=== PATIENT | female | born 1960 | race Caucasian/White ===

== ENCOUNTER 2016-10-28 23:43 | Emergency (ER) | payer OTHER ==
[~2016-10-28] VITALS: Ht 167.6 cm; Wt 81.8 kg
[~2016-10-28 23:43] MED LIST: DILT180C75 PO; LOSA1TAB3 PO
[2016-10-28 23:46] VITALS: Ht 167.6 cm; Wt 81.8 kg
[2016-10-29] MEDS ORDERED: NITROGLYCERIN 2% 1 GM OINT PKT TD STA (00:06)
[2016-10-29] MEDS ORDERED: ASPIRIN 325 MG TAB PO STA (00:06)
--- NOTE | 2016-10-29 00:45 | RADRPT ---
PROCEDURE: Portable chest x-ray. CLINICAL INDICATION: 56 years of age, female. Chest pain TECHNIQUE: Portable AP view of the chest. COMPARISON: None available. FINDINGS: Cardiomediastinal contours are normal. Lungs are clear. Negative for pleural effusion or pneumothorax. No acute bony abnormality. IMPRESSION: Negative for evidence of acute chest process. RPTAT: HCTS Physician Silas Date Time Electronically viewed and signed by Jonelle Arthur Physician on 10/29/2016 00:44 /
[2016-10-29 00:54] LABS: BASOPHILS % 0.4 % (0.0-2.0); EOSINOPHILS # 0.1 10^3/ul (0.0-0.5); EOSINOPHILS % 1.4 % (0.0-7.0); HEMATOCRIT 40.2 % (37.0-47.0); LYMPHOCYTES # 2.8 10^3/ul (0.8-2.9); LYMPHOCYTES % 32.8 % (15.0-51.0); MEAN CORPUSCULAR HEMOGLOBIN 29.9 pg (29.0-33.0); MEAN CORPUSCULAR HGB CONC 34.8 g/dl (32.0-37.0); MEAN CORPUSCULAR VOLUME 85.9 fl (82.0-101.0); MEAN PLATELET VOLUME 9.8 fl (7.4-10.4); MONOCYTE # 0.7 10^3/ul (0.3-0.9); MONOCYTES % 8.5 % (0.0-11.0); NEUTROPHILS % 56.5 % (39.0-77.0); PLATELET COUNT 275 10^3/UL (140-415); RED BLOOD COUNT 4.68 10^6/ul (4.20-5.40); RED CELL DISTRIBUTION WIDTH 11.9 % (11.5-14.5); WHITE BLOOD COUNT 8.5 10^3/ul (4.8-10.8)
[2016-10-29 01:10] LABS: INR 0.94; PROTIME 12.6 Sec (12.2-14.2)
[2016-10-29 01:11] LABS: PARTIAL THROMBOPLASTIN TIME 27.3 Sec (25.0-35.0)
[2016-10-29 01:17] LABS: ALANINE AMINOTRANSFERASE 36 IU/L (13-69); ALBUMIN 4.3 g/dl (3.3-4.9); ALBUMIN/GLOBULIN RATIO 1.59; ALKALINE PHOSPHATASE 94 IU/L (42-121); ANION GAP 21 (8-16); ASPARTATE AMINO TRANSFERASE 28 IU/L (15-46); BILIRUBIN,INDIRECT 0.2 mg/dl (0-1.1); BILIRUBIN,TOTAL 0.2 mg/dl (0.2-1.3); BLOOD UREA NITROGEN 19 mg/dl (7-20); CALCIUM 10.1 mg/dl (8.4-10.2); CARBON DIOXIDE 25 mmol/L (21-31); CHLORIDE 99 mmol/L (97-110); CREATININE 0.62 mg/dl (0.44-1.00); GLUCOSE 89 mg/dl (70-220); POTASSIUM 3.1 mmol/L (3.5-5.1); SODIUM 142 mmol/L (135-144)
[2016-10-29 01:25] LABS: B-TYPE NATRIURETIC PEPTIDE 26 PG/ML (0-125)
[2016-10-29 01:27] LABS: TROPONIN-I < 0.012 ng/ml (0.00-0.12)
[2016-10-29] MEDS ORDERED: PANT40TA4 PO (01:42)
--- NOTE | 2016-10-29 02:45 | ERA ---
ER Documentation Chief Complaint Date/Time DATE: 10/29/16 TIME: 02:44 Chief Complaint MID EPIGASTRIC CHEST PAIN X3 DAYS. WORSE TONIGHT HPI 56-year-old female comes in once of chest pain for 3 days is worse tonight. No nausea no vomiting no chills. No other current complaints. She is on her blood pressure severely elevated. She denies any current issues. Pain is mild to moderate intensity no exacerbating or relieving factors ROS All systems reviewed and are negative except as per history of present illness. Medications Home Meds Reported Medications Pantoprazole* (Pantoprazole*) 40 Mg Tablet.dr, 40 MG PO DAILY, TAB 10/29/16 Diltiazem Hcl* (Cardizem CD*) 180 Mg Cap.sr.24h, 180 MG PO DAILY 05/08/12 Losartan-Hydrochlorothiazide (Hyzaar) 1 Tab Tablet, 1 TAB PO DAILY 05/08/12 Allergies Allergies: Coded Allergies: No Known Allergy (Unverified , 10/29/16) PMhx/Soc History of Surgery: Yes (D&C) Anesthesia Reaction: No Hx Neurological Disorder: No Hx Respiratory Disorders: No Hx Cardiac Disorders: Yes (HTN) Hx Psychiatric Problems: No Hx Miscellaneous Medical Probl: No Hx Alcohol Use: No Hx Substance Use: No Hx Tobacco Use: No Smoking Status: Unknown if ever smoked Physical Exam Vitals Vital Signs Date Time Temp Pulse Resp B/P Pulse Ox O2 Delivery O2 Flow Rate FiO2 10/29/16 00:32 Nasal Cannula 2 10/28/16 23:46 97.0 96 24 214/102 100 Physical Exam Const: [] Head: Atraumatic Eyes: Normal Conjunctiva ENT: Normal External Ears, Nose and Mouth. Neck: Full range of motion..~ No meningismus. Resp: Clear to auscultation bilaterally Cardio: Regular rate and rhythm, no murmurs Abd: Soft, non tender, non distended. Normal bowel sounds Skin: No petechiae or rashes Back: No midline or flank tenderness Ext: No cyanosis, or edema Neur: Awake and alert Psych: Normal Mood and Affect Result Diagram: 10/29/16 0022 10/29/16 0022 Results 24 hrs Laboratory Tests Test 10/29/16 00:22 White Blood Count 8.510^3/ul Red Blood Count 4.6810^6/ul Hemoglobin 14.0g/dl Hematocrit 40.2% Mean Corpuscular Volume 85.9fl Mean Corpuscular Hemoglobin 29.9pg Mean Corpuscular Hemoglobin Concent 34.8g/dl Red Cell Distribution Width 11.9% Platelet Count 94781^3/UL Mean Platelet Volume 9.8fl Neutrophils % 56.5% Lymphocytes % 32.8% Monocytes % 8.5% Eosinophils % 1.4% Basophils % 0.4% Nucleated Red Blood Cells % 0.0/100WBC Neutrophils # (Manual) 510^3/ul Lymphocytes # 2.810^3/ul Monocytes # 0.710^3/ul Eosinophils # 0.110^3/ul Basophils # 0.010^3/ul Nucleated Red Blood Cells # 0.010^3/ul Prothrombin Time 12.6Sec Prothrombin Time Ratio 1.0 INR International Normalized Ratio 0.94 Activated Partial Thromboplast Time 27.3Sec Sodium Level 142mmol/L Potassium Level 3.1mmol/L Chloride Level 99mmol/L Carbon Dioxide Level 25mmol/L Anion Gap 21 Blood Urea Nitrogen 19mg/dl Creatinine 0.62mg/dl Glucose Level 89mg/dl Calcium Level 10.1mg/dl Total Bilirubin 0.2mg/dl Direct Bilirubin 0.00mg/dl Indirect Bilirubin 0.2mg/dl Aspartate Amino Transf (AST/SGOT) 28IU/L Alanine Aminotransferase (ALT/SGPT) 36IU/L Alkaline Phosphatase 94IU/L Troponin I < 0.012ng/ml B-Type Natriuretic Peptide 26PG/ML Total Protein 7.0g/dl Albumin 4.3g/dl Globulin 2.70g/dl Albumin/Globulin Ratio 1.59 Current Medications Medications (Trade) Dose Ordered Sig/Jorge L Route PRN Reason Start Time Stop Time Status Last Admin Dose Admin Aspirin (Aspirin) 325 mg ONCE STAT PO 10/29/16 00:06 10/29/16 00:08 DC 10/29/16 00:30 Nitroglycerin (Nitroglycerin 2% Oint) 1 inch ONCE STAT TD 10/29/16 00:06 10/29/16 00:08 DC 10/29/16 00:31 Procedures/MDM EKG: Rate/Rhythm: Normal Sinus Rhythm QRS, ST, T-waves: No changes consistent w/ acute ischemia Impression: No evidence of ischemia or arrhythmia Chest X-ray 1V Interpreted by me: Soft Tissue: No acute abnormalities Bones: No acute abnormalities Mediastinum/Cardiac Silhouette/Lungs: No acute abnormalities Patient's symptoms are concerning for cardiac cause will require inpatient workup and continuous monitoring. Further w/u for ischemia, arrhythmia, PE or dissection will be deferred to the inpatient team. Accepting Care Team: Current data and ongoing care discussed. Time: To 45 Primary Provider: [employer] Consulting: [[email or web address]] Outstanding Data: none Departure Diagnosis: Primary Impression: Chest pain Qualified Code: R07.9 - Chest pain, unspecified type Condition: Serious TIGRE CARRANZA Oct 29, 2016 02:45
[2016-10-29] MEDS ORDERED: ONDANSETRON 4 MG INJ IV PRN (05:30)
[2016-10-29] MEDS ORDERED: morphine 4 MG/ML VIAL IV PRN (05:30)
[2016-10-29] MEDS ORDERED: AL HYDROX/MG HYDROX/SIMETH 30 ML CUP PO PRN (05:30)
[2016-10-29] MEDS ORDERED: DILTIAZEM (CD) 180 MG CAP PO ONE (05:30)
[2016-10-29] MEDS ORDERED: ZOLPIDEM 5 MG TAB PO PRN (05:30)
[2016-10-29] MEDS ORDERED: NITROGLYCERIN (SL) 0.4 MG TAB SL PRN (05:30)
[2016-10-29] MEDS ORDERED: IBUPROFEN 600 MG TAB PO PRN (05:30)
[2016-10-29] MEDS ORDERED: morphine 2 MG INJ IV PRN (05:30)
[2016-10-29 06:38] LABS: BASOPHILS % 0.4 % (0.0-2.0); EOSINOPHILS # 0.1 10^3/ul (0.0-0.5); EOSINOPHILS % 1.7 % (0.0-7.0); HEMATOCRIT 38.7 % (37.0-47.0); HEMOGLOBIN 13.5 g/dl (12.0-16.0); LYMPHOCYTES # 2.4 10^3/ul (0.8-2.9); LYMPHOCYTES % 33.7 % (15.0-51.0); MEAN CORPUSCULAR HEMOGLOBIN 30.4 pg (29.0-33.0); MEAN CORPUSCULAR HGB CONC 34.9 g/dl (32.0-37.0); MEAN CORPUSCULAR VOLUME 87.2 fl (82.0-101.0); MEAN PLATELET VOLUME 9.7 fl (7.4-10.4); MONOCYTE # 0.6 10^3/ul (0.3-0.9); MONOCYTES % 8.2 % (0.0-11.0); NEUTROPHILS % 55.7 % (39.0-77.0); PLATELET COUNT 237 10^3/UL (140-415); RED BLOOD COUNT 4.44 10^6/ul (4.20-5.40); RED CELL DISTRIBUTION WIDTH 11.9 % (11.5-14.5); WHITE BLOOD COUNT 7.1 10^3/ul (4.8-10.8)
[2016-10-29 07:06] LABS: INR 1.01; PROTIME 13.3 Sec (12.2-14.2)
[2016-10-29 07:07] LABS: PARTIAL THROMBOPLASTIN TIME 28.6 Sec (25.0-35.0)
[2016-10-29 08:00] VITALS: BP 110/86; PULSE 62; RESP 14
[2016-10-29 08:12] LABS: BARBITURATES Positive (NEGATIVE)
[2016-10-29 08:16] LABS: BENZODIAZEPINES Negative (NEGATIVE); CANNABINOIDS Negative (NEGATIVE); COCAINE Negative (NEGATIVE); OPIATES Negative (NEGATIVE)
[2016-10-29] MEDS ORDERED: PANTOPRAZOLE (EC) 40 MG TAB PO SCH (09:00)
[2016-10-30] MEDS ORDERED: ASPIRIN 81 MG TAB PO SCH (09:00)
== END 2016-10-29 09:45 | disposition left against medical advice (07) ==
LOC: E/R 23:43
DX: R07.89 Other chest pain (principal); I10 Essential (primary) hypertension; R06.02 Shortness of breath
CPT/HCPCS: 36415; 71010; 80053; 80307; 83880; 84484; 85025; 85610; 85730; 93005; 96374; 99285; J2405